=== PATIENT | male | born 1990 | race Caucasian/White ===

== ENCOUNTER 2019-03-01 21:27 | Emergency (ER) | payer BC ==
[~2019-03-01] VITALS: Ht 172.7 cm; Wt 105.2 kg
[2019-03-01 21:30] VITALS: Ht 172.7 cm; Wt 105.2 kg
[2019-03-01 23:11] VITALS: BP 122/83
== END 2019-03-01 23:11 | disposition home or self-care (01) ==
LOC: ED 21:27
DX: F41.9 Anxiety disorder, unspecified (principal); R06.4 Hyperventilation; I10 Essential (primary) hypertension